=== PATIENT | male | born 1970 | race Caucasian/White ===

== ENCOUNTER 2021-04-18 01:20 | Emergency (ER) | payer BC ==
[2021-04-18 02:02] LABS: HEMOGLOBIN 14.9 gm/dl (14.0-17.5); RED BLOOD COUNT 5.03 M/UL (4.20-5.50); WHITE BLOOD COUNT 8.4 K/UL (4.5-11.0)
[2021-04-18 02:54] LABS: BUN/CREATININE RATIO 21 (0-10)
[2021-04-18] MEDS ORDERED: MUCINEX600 MG PO (03:01)
== END 2021-04-18 03:10 | disposition home or self-care (01) ==
LOC: ER1 01:20
PROVIDERS: Physician Assistant
DX: U07.1 COVID-19 (principal); E10.9 Type 1 diabetes mellitus without complications; R03.0 Elevated blood-pressure reading, without diagnosis of hypertension; R05.9 Cough, unspecified; I10 Essential (primary) hypertension; Z88.0 Allergy status to penicillin
CPT/HCPCS: 71045; 80053; 82550; 82553; 83615; 83874; 84484; 85025; 93005; 99285

== ENCOUNTER → 2021-05-11 | Outpatient (CLI) | payer BC ==
[~2021-05-11] MED LIST: MUCINEX600 MG PO
== END ==
LOC: ECHO 09:36
DX: R01.1 Cardiac murmur, unspecified (principal)
CPT/HCPCS: ECHO; 93306

== ENCOUNTER → 2021-07-03 | Outpatient (CLI) | payer BC | LOC: KOH-I 14:08 | DX: J18.8 Other pneumonia, unspecified organism (principal) | CPT/HCPCS: 71046 ==